=== PATIENT | male | born 1950 | race Caucasian/White ===

== ENCOUNTER → 2023-04-25 16:05 | Outpatient (REF) | payer OTHER, SELFPAY | LOC: MRI 3T 16:05 | PROVIDERS: ATTENDING PHYSICIAN Physical Medicine & Rehabilitation Pain Medicine; FAMILY PHYSICIAN Family Medicine | DX: M54.2 Cervicalgia (principal); G95.9 Disease of spinal cord, unspecified | CPT/HCPCS: 72141 ==

== ENCOUNTER 2023-07-18 11:21 | Outpatient (RCR) | payer OTHER, SELFPAY | END 2023-07-18 23:59 | disposition home or self-care (01) | LOC: RPT 11:21 | PROVIDERS: ATTENDING PHYSICIAN Psychiatry & Neurology Neurology; FAMILY PHYSICIAN Family Medicine | DX: G20.A1 Parkinson's disease without dyskinesia, without mention of fluctuations (principal); Z73.6 Limitation of activities due to disability | CPT/HCPCS: 97110; 97112; 97163; 97530 ==

== ENCOUNTER → 2023-07-23 18:32 | Outpatient (REF) | payer OTHER, SELFPAY | LOC: MRI 18:32 | PROVIDERS: ATTENDING PHYSICIAN Psychiatry & Neurology Neurology; FAMILY PHYSICIAN Family Medicine | DX: G20.A1 Parkinson's disease without dyskinesia, without mention of fluctuations (principal) | CPT/HCPCS: 70553; A9575 ==

== ENCOUNTER 2023-08-06 14:58 | Outpatient (RCR) | payer OTHER, SELFPAY | END 2023-08-06 23:59 | disposition home or self-care (01) | LOC: RPT 14:58 | PROVIDERS: ATTENDING PHYSICIAN Psychiatry & Neurology Neurology; FAMILY PHYSICIAN Family Medicine | DX: G20.A1 Parkinson's disease without dyskinesia, without mention of fluctuations (principal); Z73.6 Limitation of activities due to disability; R26.2 Difficulty in walking, not elsewhere classified | CPT/HCPCS: 97110; 97112; 97140; 97530 ==

== ENCOUNTER → 2023-08-24 12:02 | Outpatient (REF) | payer OTHER, SELFPAY | LOC: MRI 3T 12:02 | PROVIDERS: ATTENDING PHYSICIAN Psychiatry & Neurology Neurology; FAMILY PHYSICIAN Internal Medicine Cardiovascular Disease | DX: I63.9 Cerebral infarction, unspecified (principal) | CPT/HCPCS: 70544; 70549; A9585 ==

== ENCOUNTER 2023-09-19 14:36 | Outpatient (RCR) | payer OTHER, SELFPAY | END 2023-09-19 23:59 | disposition home or self-care (01) | LOC: RST 14:36 | PROVIDERS: ATTENDING PHYSICIAN Psychiatry & Neurology Neurology; FAMILY PHYSICIAN Family Medicine | DX: R49.8 Other voice and resonance disorders; G20.A1 Parkinson's disease without dyskinesia, without mention of fluctuations; Z73.6 Limitation of activities due to disability; R47.1 Dysarthria and anarthria; R26.2 Difficulty in walking, not elsewhere classified | CPT/HCPCS: 92507; 92522; 97110; 97112; 97116; 97530 ==

== ENCOUNTER → 2023-10-01 09:41 | Outpatient (REF) | payer OTHER, SELFPAY | LOC: RAD 09:41 | PROVIDERS: ATTENDING PHYSICIAN Surgery Vascular Surgery; FAMILY PHYSICIAN Family Medicine | DX: I77.3 Arterial fibromuscular dysplasia (principal) | CPT/HCPCS: 93975 ==

== ENCOUNTER → 2023-10-03 09:59 | Outpatient (REF) | payer OTHER, SELFPAY | LOC: RST 09:59 | PROVIDERS: ATTENDING PHYSICIAN Psychiatry & Neurology Neurology; FAMILY PHYSICIAN Family Medicine | DX: G20.A1 Parkinson's disease without dyskinesia, without mention of fluctuations (principal) | CPT/HCPCS: 74230; 92611 ==

== ENCOUNTER 2023-10-17 14:40 | Outpatient (RCR) | payer OTHER, SELFPAY | END 2023-10-17 23:59 | disposition home or self-care (01) | LOC: RPT 14:40 | PROVIDERS: ATTENDING PHYSICIAN Psychiatry & Neurology Neurology; FAMILY PHYSICIAN Family Medicine | DX: G20.A1 Parkinson's disease without dyskinesia, without mention of fluctuations (principal); Z73.6 Limitation of activities due to disability; R26.2 Difficulty in walking, not elsewhere classified | CPT/HCPCS: 92507 ==

== ENCOUNTER 2023-11-14 07:33 | Outpatient (RCR) | payer OTHER, SELFPAY | END 2023-11-14 23:59 | disposition home or self-care (01) | LOC: RPT 07:33 | PROVIDERS: ATTENDING PHYSICIAN Psychiatry & Neurology Neurology; FAMILY PHYSICIAN Family Medicine | DX: G20.A1 Parkinson's disease without dyskinesia, without mention of fluctuations (principal); Z73.6 Limitation of activities due to disability; R26.2 Difficulty in walking, not elsewhere classified | CPT/HCPCS: 92507 ==

== ENCOUNTER 2023-12-18 13:57 | Outpatient (RCR) | payer OTHER, SELFPAY | END 2023-12-18 23:59 | disposition home or self-care (01) | LOC: RPT 13:57 | PROVIDERS: ATTENDING PHYSICIAN Psychiatry & Neurology Neurology; FAMILY PHYSICIAN Family Medicine | DX: G20.A1 Parkinson's disease without dyskinesia, without mention of fluctuations (principal); Z73.6 Limitation of activities due to disability; R26.2 Difficulty in walking, not elsewhere classified | CPT/HCPCS: 92507 ==

== ENCOUNTER 2024-03-06 06:22 | Day surgery (SDC) | payer OTHER, SELFPAY | END 2024-03-06 14:31 | disposition home or self-care (01) | LOC: GI 06:22 | PROVIDERS: ATTENDING PHYSICIAN Specialist | DX: Z12.11 Encounter for screening for malignant neoplasm of colon (principal); K57.30 Diverticulosis of large intestine without perforation or abscess without bleeding; Z86.0100 Personal history of colon polyps, unspecified; Z80.0 Family history of malignant neoplasm of digestive organs | CPT/HCPCS: 45380; 88305 ==

== ENCOUNTER 2024-06-05 02:34 | Emergency (ER) | payer OTHER, SELFPAY ==
[2024-06-05 02:40] VITALS: BP 125/71; BMI 28.4
[2024-06-05 03:00] VITALS: BP 127/71
[2024-06-05 03:38] LABS: % Basophils 0.2 % (0-2); % Eosinophils 0.1 % (0-6); % Immature Granulocytes 0.4 % (0-0.5); % Monocytes 7.4 % (1.7-9.3); % Neutrophils 84.9 % (42.2-75.2); Absolute Immature Granulocytes 0.1 10^3/uL (0-0.05); Absolute Monocytes 1.1 10^3/uL (0.1-0.6); Absolute Neutrophils 12.5 10^3/uL (1.4-6.5); Hematocrit 44.5 % (39.0-52.0); Hemoglobin 15.4 g/dL (13.0-18.0); Mean Corp Hgb Conc. 34.6 g/dL (33.0-37.0); Mean Corpuscular Hgb 31.7 pg (27.0-31.0); Mean Corpuscular Volume 91.6 fL (80.0-94.0); Nucleated Red Blood Cells % 0 % (-); Platelet Count 197 10^3/uL (130-400); Red Blood Cell Count 4.86 10^6/uL (4.70-6.10); Red Cell Dist. Width 12.7 % (11.5-14.5); White Blood Cell Count 14.8 10^3/uL (4.8-10.8)
[2024-06-05 03:38] LABS: Urine Albumin Negative (Neg - Trace); Urine Bilirubin Negative (Negative); Urine Character Clear (Clear); Urine Color Yellow; Urine Glucose Negative (Negative); Urine Ketone Negative (Negative); Urine Leukocyte 2+ (Negative); Urine Nitrite Negative (Negative); Urine Occult Blood 2+ (Negative); Urine Specific Gravity 1.005 (<1.030); Urine Urobilinogen Negative (Neg - 1+)
[2024-06-05 03:58] LABS: ALT (SGPT) 13 U/L (0-50); AST (SGOT) 21 U/L (17-59); Albumin 4.8 g/dl (3.5-5.0); Alkaline Phosphatase 102 U/L (38-126); Blood Urea Nitrogen 19 mg/dl (9-20); Calcium 9.4 mg/dl (8.4-10.2); Carbon Dioxide 28 mmol/L (22-30); Chloride 99 mmol/L (98-107); Estimated Creatinine Clearance 66 ml/min; Glucose 131 mg/dl (70-99); Potassium 3.9 mmol/L (3.5-5.1); Sodium 141 mmol/L (135-145); Total Bilirubin 0.8 mg/dl (0.2-1.3); Total Protein 7.8 g/dl (6.3-8.2); eGFR > 60.00
[2024-06-05 04:00] VITALS: BP 110/57
[2024-06-05 04:01] LABS: Urine Bacteria Moderate (Negative); Urine White Cell 30-40 /HPF (0-5)
[2024-06-05] MEDS: ROCEPHIN 1000 MG IV (05:38)
--- NOTE | 2024-06-05 05:47 | ED.GENMED ---
History of Present Illness
General
Chief Complaint: Fall
Source: patient and spouse
Exam Limitations: none
Time Seen by Provider: 06/05/24 05:18
Nursing documentation reviewed up to this point in time: agreed with
History of Present Illness
History of Present Illness:
73-year-old male past medical history of Parkinson's self cathing presenting to the emergency department today after he tried to get up out of bed he thought his arms were somewhat weak and slowly lowered himself to the ground without any traumatic
fall. He claims that he did take Xanax prior to bed which he normally does not take which was likely why he felt weak. He now feels better at this point. Also noted small amount of blood in his urine a few days ago and thinks he may have a fever
earlier today denies chest pain shortness of breath numbness weakness
Past History
Past History
ED Past Medical History: GERD and Other (Prostatic hypertrophy)
Social History
Tobacco: Non-smoker
Drug: None
Personal:
Review of Systems
Review of Systems
Allergies reviewed?: Yes
All Other Systems: ROS reviewed and negative except as documented in HPI and ROS
Phy Exam
Physical Exam
Physical Exam:
GENERAL: Alert , in no apparent distress
EYE: pupils equal and reactive
NECK: Supple, no significant adenopathy.
ENT: o/p clr, mmm.
CARDIAC: Regular rate and rhythm .
LUNGS: Clear breath sounds bilaterally, no acute respiratory distress, no wheezes/rales/rhonchi
ABDOMEN: Soft, without focal tenderness, no r/g, no cvat
NEUROLOGICAL: Alert and oriented, no focal neuro deficits
SKIN: Warm and dry, skin intact.
MUSCULOSKELETAL: No edema, well perfused.
PSYCH: Normal and appropriate interaction.
Course
Orders/Labs/Results
Orders:
Orders
06/05/24 02:39
Electrocardiogram (*1) Urgent
Reason for Study: Syncope
EKG- Treatment ONCE
06/05/24 02:56
Complete Blood Count/With Diff Urgent
Comprehensive Metabolic Panel Urgent
Lactic Acid Urgent
Blood Culture Urgent
JUANITA Source: Blood/Venous
Specimen Description:
06/05/24 03:23
Straight cath- Treatment ONCE
06/05/24 03:28
Urinalysis Reflex To Culture Urgent
Date Specimen was Collected: 06/05/24
Time Specimen was Collected: 02:39
Urine Microscopic Reflex Cult Urgent
Blood Culture Urgent
JUANITA Source: Blood/Venous
Specimen Description:
Urine Culture Urgent
JUANITA Source: U
Specimen Description:
Date Specimen was Collected: 06/05/24
Time Specimen was Collected: 02:39
06/05/24 05:32
CefTRIAXone [Rocephin] 1,000 mg IV NOW STA
Abnormal Lab Results
06/05/24 06/05/24
02:56 03:28
WBC 14.8 H 10^3/uL
(4.8-10.8)
MCH 31.7 H pg
(27.0-31.0)
Abs Immat Gran (auto) 0.1 H 10^3/uL
(0-0.05)
Absolute Neuts (auto) 12.5 H 10^3/uL
(1.4-6.5)
Absolute Lymphs (auto) 1.0 L 10^3/uL
(1.2-3.4)
Absolute Monos (auto) 1.1 H 10^3/uL
(0.1-0.6)
Neutrophils % 84.9 H %
(42.2-75.2)
Lymphocytes % 7.0 L %
(20.5-51.1)
Glucose 131 H mg/dl
(70-99)
Ur Occult Blood Reflex 2+ A
(Negative)
Leukocyte Esterase Rfl 2+ A
(Negative)
Urine RBC 3-6 A /HPF
(0-2)
Urine WBC (Reflex) 30-40 A /HPF
(0-5)
Urine Bacteria (Reflex) Moderate A
(Negative)
06/05/24 02:56
06/05/24 02:56
Vital Signs
Initial and Last Documented VS:
Initial Vital Signs
Temp Pulse Resp BP Pulse Ox
98.8 F 106 16 125/71 94
06/05/24 02:40 06/05/24 02:40 06/05/24 02:40 06/05/24 02:40 06/05/24 02:40
Last Documented Vital Signs
Temp Pulse Resp BP Pulse Ox
98.8 F 95 20 110/57 91
06/05/24 02:40 06/05/24 04:00 06/05/24 04:00 06/05/24 04:00 06/05/24 03:00
MDM/Problems Addressed
MDM/Problems Addressed:
73-year-old male presenting to the emergency department today after a ground-level fall that was nontraumatic. Difficulty getting up and was brought in by EMS. On arrival here mildly tachycardic otherwise vital signs are normal. Vital signs
improved without specific treatment. White count 14.8. He was on the ground for very short period of time no likelihood of rhabdo. Urinalysis potentially consistent with UTI. Weakness was secondary to the Xanax use from UTI. Patient claims that
he believes it was likely from the Xanax. To go home at this point. Patient was able to stand up and walk without assistance in the room which the claims was much better than he was at the house earlier. Was explained to him that UTI and
will require treatment he was offered to stay in the hospital for monitoring he elected to go home. Otherwise patient given initial IV dose of antibiotics here and given strict return precautions.
*Critical Care Note
Total Time (30-74mins, 75-104mins- exclusive of procedures): Not Applicable
ED Attending Note
-
Portions of this chart may have been created with voice recognition software.� Occasional wrong word or��sound alike� substitutions may have occurred due to the inherent limitations of voice recognition software.
Discharge Plan
Departure
Patient Disposition: Home (Routine Discharge)
Date of Disposition: 06/05/24
Time of Disposition: 05:49
Patient with high blood pressure during this ER visit?: No
Condition: Good
Covid-19: Not Applicable
Discharge Problem:
Acute UTI
Instructions: Urinary tract infections in adults
Prescriptions:
New
cefpodoxime 200 mg tablet
200 mg PO BID 7 Days Qty: 14 0RF
No Action
alprazolam 0.5 MG tablet
0.5 mg PO DAILYPRN PRN (Reason: anxiety)
Rx Instructions:
01/18/2023, patient filled this medication on 08/29/2022 for 90 tablets according to PDMP.
omeprazole 20 MG capsule,delayed release(DR/EC)
20 mg PO DAILY PRN (Reason: gerd)
Patient Comments:
01/18/2023, patient states that they take this medication 'whenever I remember to'.
tamsulosin [Flomax] 0.4 MG capsule
0.4 mg PO .SEE BELOW
Patient Comments:
01/18/2023, patient states that they take this medication 'every day or every other day'.
ascorbic acid (vitamin C) [Vitamin C] 500 MG tablet
500 mg PO DAILY
Patient Comments:
01/18/2023, patient states that they take this medication 'whenever I remember to'.
ibuprofen 200 MG tablet
400 mg PO Q4HPRN PRN (Reason: mild pain)
finasteride 5 MG tablet
5 mg PO QPM
Patient Comments:
01/18/2023, patient states that 'sometimes I forget to take' this medication.
Metamucil Fiber Singles 1 PACKET powder in packet
15 ml PO DAILY PRN (Reason: constipation)
Patient Comments:
01/18/2023, patient states that they take this medication 'every second or third day' and they are unsure of when they had it last.
polyethylene glycol 3350 [Miralax] 17 gram Powder In Packet
17 g PO Q48H
cyanocobalamin (vitamin B-12) 1,000 mcg Tablet
1,000 mcg PO DAILY
acetaminophen [Tylenol Extra Strength] 500 mg Tablet
500 mg PO Q6H PRN (Reason: mild pain)
escitalopram oxalate 20 mg Tablet
20 mg PO HSPRN PRN (Reason: anxiety)
cholecalciferol (vitamin D3) 25 mcg (1,000 unit) Tablet
25 mcg PO DAILY
diltiazem HCl 180 mg Capsule,Extended Release 24hr
180 mg PO BID Qty: 60 0RF
Eliquis 5 mg Tablet
5 mg PO BID Qty: 60 0RF
guaifenesin 600 mg Tablet Extended Release 12hr
600 mg PO Q12 Qty: 0 0RF
amoxicillin-pot clavulanate 875-125 mg tablet
1 tab PO BID Qty: 10 0RF
Referrals:
UNKNOWN - PT DOES,NOT KNOW [Family Provider] -
Activity Restrictions/Additional Instructions:
You came to the emergency department today with concerns of a fall. You are found to have a likely UTI. Please take the prescribed antibiotics and follow-up closely with your urologist. Return for any worsening, new or concerning symptoms.
Interventions
Interventions:
*Risk Screen - Suicide Last Done: 06/05/24 02:40
*General Assessment Last Done: 06/05/24 02:40
*Neglect/Abuse Screening Last Done: 06/05/24 02:40
*ED COVID-19 Vaccine History Last Done: 06/05/24 02:40
ED-Musculoskeletal Assessment Last Done: 06/05/24 03:00
ED- Neurological Assessment Last Done: 06/05/24 03:00
ED-Skin Assessment Last Done: 06/05/24 03:00
Discharge Date and Time
Print Language: UPPER SORBIAN
== END 2024-06-05 06:29 | disposition home or self-care (01) ==
LOC: EMR 02:34
PROVIDERS: EMERGENCY PHYSICIAN Emergency Medicine
DX: N39.0 Urinary tract infection, site not specified (principal); R00.0 Tachycardia, unspecified; G20.A1 Parkinson's disease without dyskinesia, without mention of fluctuations; N40.0 Benign prostatic hyperplasia without lower urinary tract symptoms
CPT/HCPCS: 96374; 99284; 80053; 81003; 81015; 83605; 85025; 87040; 87086; 93005

== ENCOUNTER → 2025-01-20 12:23 | Outpatient (REF) | payer OTHER, SELFPAY | LOC: RAD 12:23 | PROVIDERS: ATTENDING PHYSICIAN Specialist; FAMILY PHYSICIAN Family Medicine | DX: R19.4 Change in bowel habit (principal) | CPT/HCPCS: 74177; Q9967 ==

== ENCOUNTER 2025-01-25 16:21 | Emergency (ER) | payer OTHER, SELFPAY ==
[2025-01-25] VITALS (7 sets, daily range): BP systolic 123–155; BP diastolic 77–89; BMI 28.3
--- NOTE | 2025-01-25 16:47 | ED.GENMED ---
History of Present Illness
General
Chief Complaint: Abdominal Pain
Source: patient
Exam Limitations: none
Time Seen by Provider: 01/25/25 16:28
Nursing documentation reviewed up to this point in time: agreed with
History of Present Illness
History of Present Illness:
Patient to emergency department with complaint of lower abdominal pain. Symptoms started today. Reports pain to left lower quadrant. No prior history of same. He denies fever or chills. He reports nausea but no vomiting or diarrhea. Last bowel
movement was today, no improvement in his symptoms. Reports a history of diverticulosis but no prior diverticulitis. Brought to the emergency department by spouse for evaluation.
Past History
Past History
ED Past Medical History: GERD and Other (Prostatic hypertrophy, Parkinson's disease)
Social History
Tobacco: Non-smoker
Drug: None
Personal:
Review of Systems
Review of Systems
Allergies reviewed?: Yes
All Other Systems: ROS reviewed and negative except as documented in HPI and ROS
Constitutional: Reports no symptoms
EENT: Reports no symptoms
Respiratory: Reports no symptoms
Cardiac: Reports no symptoms
ABD/GI: Reports abdominal pain (Left lower quadrant abdominal pain)
: Reports no symptoms
Musculoskeletal: Reports no symptoms
Skin: Reports no symptoms
Neurological: Reports no symptoms
Psychiatric: Reports no symptoms
Phy Exam
General Physical Exam
General Presentation: well appearing and mild distress
General age: appears stated age
General Skin: warm and dry
General Habitus: normal
Cardiovascular Exam
Cardiovascular Exam: regular rate/rhythm and no edema
Gastrointestinal Exam
Gastrointestinal Exam: normal bowel sounds, soft, no organomegaly, no pulsatile mass and non distended
Palpation: left upper quadrant: No tenderness, left lower quadrant: Moderate tenderness, right upper quadrant: No tenderness and right lower quadrant: No tenderness
Musculoskeletal Exam
Musculoskeletal Exam: full ROM and neuro vasc intact
Skin Exam
Skin Exam: normal color, warm/dry and no rash
Psychiatric Exam
Psychiatric Exam: normal mood/affect
Course
Orders/Labs/Results
Orders:
Orders
01/25/25 16:41
Complete Blood Count/With Diff Urgent
Comprehensive Metabolic Panel Urgent
Lipase Urgent
01/25/25 16:43
0.9% Sodium Chloride 1000 ml [Nss] 1,000 ml IV BOLUS
HYDROmorphone [Dilaudid] 0.5 mg IV NOW STA
01/25/25 16:44
Prochlorperazine [Compazine] 10 mg IV NOW STA
01/25/25 17:36
CT Abd/pelvis W Iv Cont Urgent
Comment:
Reason For Exam: left lower abd. pain
HYDROmorphone [Dilaudid] 0.5 mg .ROUTE .STK-MED ONE
01/25/25 17:37
HYDROmorphone [Dilaudid] 0.5 mg IV NOW STA
01/25/25 18:52
Urinalysis Reflex To Culture Urgent
Date Specimen was Collected: 01/25/25
Time Specimen was Collected: 18:39
Urine Microscopic Reflex Cult Urgent
01/25/25 21:13
Oxycodone/Acetaminophen [Percocet 5/325] 1 tablet PO NOW STA
Tamsulosin [Flomax] 0.4 mg PO NOW STA
Abnormal Lab Results
01/25/25 01/25/25
16:41 18:52
Absolute Monos (auto) 0.7 H 10^3/uL
(0.1-0.6)
BUN 24 H mg/dl
(9-20)
Urine Ketones 1+ A
(Negative)
Ur Occult Blood Reflex 2+ A
(Negative)
Urine RBC 3-6 A /HPF
(0-2)
Urine Bacteria (Reflex) Few A
(Negative)
01/25/25 16:41
01/25/25 16:41
Vital Signs
Initial and Last Documented VS:
Initial Vital Signs
Temp Pulse Resp BP Pulse Ox
97.8 F 70 17 123/79 99
01/25/25 16:23 01/25/25 16:23 01/25/25 16:23 01/25/25 16:23 01/25/25 16:23
Last Documented Vital Signs
Temp Pulse Resp BP Pulse Ox
97.8 F 81 14 143/80 94
01/25/25 16:23 01/25/25 21:15 01/25/25 21:00 01/25/25 21:00 01/25/25 21:00
*Radiology
Radiology exam reviewed: radiology read reviewed
*Pulse Oximetry
SaO2: 99
Oxygen Mode of Delivery: Room air
Patient hypoxic: no
*Critical Care Note
Total Time (30-74mins, 75-104mins- exclusive of procedures): Not Applicable
Update Note
Update Note:
Patient to the emergency department with complaint of left-sided lower abdominal pain. Symptoms started this afternoon. No prior history of same. On arrival to ED he is awake and alert vital signs are stable and he remains afebrile. He was given
IV fluids and narcotic pain medication in ED with good control of pain. Labs reviewed. WBC 8.3. BUN 24. UA with +2 occult blood 3-6 RBCs with few bacteria. Patient was sent to CT for imaging of abdomen and pelvis. 7 mm renal stone noted at the
left UVJ, mild hydroureteronephrosis. Dr. Viveros was consulted. Patient to be discharged home. He was started on Flomax 0.4 mg which she will continue daily. He was given a prescription for Percocet 5/325 to be taken every 4 hours as needed
for severe pain. He will continue to strain his urine. He will contact urology in the a.m. to schedule follow-up appointment. Patient and spouse were given instructions on signs and symptoms to return to the emergency department and they are
agreeable to this plan.
ED Attending Note
-
Portions of this chart may have been created with voice recognition software.� Occasional wrong word or��sound alike� substitutions may have occurred due to the inherent limitations of voice recognition software.
Discharge Plan
Departure
Patient Disposition: Home (Routine Discharge)
Date of Disposition: 01/25/25
Time of Disposition: 21:14
Patient with high blood pressure during this ER visit?: No
Condition: Good
Covid-19: Not Applicable
Discharge Problem:
Kidney stone
Instructions: Kidney Stones (DC), How to Strain Your Urine
Prescriptions:
New
tamsulosin 0.4 mg capsule
0.4 mg PO DAILY Qty: 20 0RF
oxycodone-acetaminophen [Endocet] 5-325 mg tablet
1 tab PO Q4H PRN (Reason: Pain) Qty: 15 0RF
No Action
alprazolam 0.5 MG tablet
0.5 mg PO DAILYPRN PRN (Reason: anxiety)
Rx Instructions:
01/18/2023, patient filled this medication on 08/29/2022 for 90 tablets according to PDMP.
omeprazole 20 MG capsule,delayed release(DR/EC)
20 mg PO DAILY PRN (Reason: gerd)
Patient Comments:
01/18/2023, patient states that they take this medication 'whenever I remember to'.
tamsulosin [Flomax] 0.4 MG capsule
0.4 mg PO .SEE BELOW
Patient Comments:
01/18/2023, patient states that they take this medication 'every day or every other day'.
ascorbic acid (vitamin C) [Vitamin C] 500 MG tablet
500 mg PO DAILY
Patient Comments:
01/18/2023, patient states that they take this medication 'whenever I remember to'.
ibuprofen 200 MG tablet
400 mg PO Q4HPRN PRN (Reason: mild pain)
finasteride 5 MG tablet
5 mg PO QPM
Patient Comments:
01/18/2023, patient states that 'sometimes I forget to take' this medication.
Metamucil Fiber (aspartame) 1 PACKET powder in packet
15 ml PO DAILY PRN (Reason: constipation)
Patient Comments:
01/18/2023, patient states that they take this medication 'every second or third day' and they are unsure of when they had it last.
polyethylene glycol 3350 [Miralax] 17 gram Powder In Packet
17 g PO Q48H
cyanocobalamin (vitamin B-12) 1,000 mcg Tablet
1,000 mcg PO DAILY
acetaminophen [Tylenol Extra Strength] 500 mg Tablet
500 mg PO Q6H PRN (Reason: mild pain)
escitalopram oxalate 20 mg Tablet
20 mg PO HSPRN PRN (Reason: anxiety)
cholecalciferol (vitamin D3) 25 mcg (1,000 unit) Tablet
25 mcg PO DAILY
diltiazem HCl 180 mg Capsule,Extended Release 24hr
180 mg PO BID Qty: 60 0RF
Eliquis 5 mg Tablet
5 mg PO BID Qty: 60 0RF
guaifenesin 600 mg Tablet Extended Release 12hr
600 mg PO Q12 Qty: 0 0RF
amoxicillin-pot clavulanate 875-125 mg tablet
1 tab PO BID Qty: 10 0RF
cefpodoxime 200 mg tablet
200 mg PO BID 7 Days Qty: 14 0RF
Referrals:
Luis Tolentino MD [Active, Urology] - Call in 1-3 days for appt
Celestine Mayfield MD [Family Provider, Family Practice]
Activity Restrictions/Additional Instructions:
Return to the emergency department for any changes in/worsening of your symptoms.
Interventions
Interventions:
*Risk Screen - Suicide Last Done: 01/25/25 16:26
*General Assessment Last Done: 01/25/25 16:26
*Neglect/Abuse Screening Last Done: 01/25/25 16:26
*ED COVID-19 Vaccine History Last Done: 01/25/25 16:26
*ED Influenza Vaccine History Last Done: 01/25/25 16:[address]
[facility] Fall Risk Assessment Tool Last Done: 01/25/25 16:57
*Nursing Disposition Last Done: 01/25/25 21:50
IJ-Bivjfk-Wlzfxhport Assessment Last Done: 01/25/25 16:39
Discharge Date and Time
Discharge Date/Time: 01/25/25 21:51
Print Language: GEORGIAN
[2025-01-25] MEDS: NSS 1000 IV (16:48)
[2025-01-25] MEDS: COMPAZINE 10 MG IV (16:49)
[2025-01-25] MEDS: DILAUDID 0.5 MG IV ×2 (16:50→17:37)
[2025-01-25 16:55] LABS: Hematocrit 41.9 % (39.0-52.0); Hemoglobin 14.5 g/dL (13.0-18.0); Mean Corp Hgb Conc. 34.6 g/dL (33.0-37.0); Mean Corpuscular Volume 88.6 fL (80.0-94.0); Nucleated Red Blood Cells % 0 % (-); Platelet Count 218 10^3/uL (130-400); Red Cell Dist. Width 12.6 % (11.5-14.5)
[2025-01-25 17:19] LABS: ALT (SGPT) < 10 U/L (0-50); AST (SGOT) 20 U/L (17-59); Albumin 4.7 g/dl (3.5-5.0); Alkaline Phosphatase 75 U/L (38-126); Blood Urea Nitrogen 24 mg/dl (9-20); Calcium 9.0 mg/dl (8.4-10.2); Carbon Dioxide 28 mmol/L (22-30); Chloride 102 mmol/L (98-107); Estimated Creatinine Clearance 65 ml/min; Glucose 96 mg/dl (70-99); Lipase 66 U/L (23-300); Potassium 4.4 mmol/L (3.5-5.1); Sodium 138 mmol/L (135-145); Total Protein 7.5 g/dl (6.3-8.2); eGFR > 60.00
[2025-01-25 19:06] LABS: Urine Character Clear (Clear)
[2025-01-25 20:09] LABS: Urine Squamous Cell 0-2 /LPF (Few)
[2025-01-25 20:10] LABS: Urine White Cell 0-2 /HPF (0-5)
[2025-01-25] MEDS: FLOMAX 0.4 MG PO (21:16)
[2025-01-25] MEDS: PERCOCET 5/325 1 TABLET PO (21:16)
== END 2025-01-25 21:51 | disposition home or self-care (01) ==
LOC: EMR 16:21
PROVIDERS: Nurse Practitioner; EMERGENCY PHYSICIAN Emergency Medicine; FAMILY PHYSICIAN Family Medicine
DX: N13.2 Hydronephrosis with renal and ureteral calculous obstruction (principal); K21.9 Gastro-esophageal reflux disease without esophagitis; G20.A1 Parkinson's disease without dyskinesia, without mention of fluctuations; N40.0 Benign prostatic hyperplasia without lower urinary tract symptoms
CPT/HCPCS: 99284; 96374; 96375; 96376; 96361; 74177; 80053; 81003; 81015; 83690; 85025; Q9967

== ENCOUNTER → 2025-02-07 10:31 | Outpatient (REF) | payer OTHER, SELFPAY | LOC: RAD 10:31 | PROVIDERS: ATTENDING PHYSICIAN Specialist; FAMILY PHYSICIAN Family Medicine | DX: N20.1 Calculus of ureter (principal) | CPT/HCPCS: 74018 ==

== ENCOUNTER 2025-02-16 06:49 | Outpatient (RCR) | payer OTHER, SELFPAY | END 2025-02-16 23:59 | disposition home or self-care (01) | LOC: RST 06:49 | PROVIDERS: ATTENDING PHYSICIAN Specialist | DX: R13.12 Dysphagia, oropharyngeal phase (principal); G20.A1 Parkinson's disease without dyskinesia, without mention of fluctuations | CPT/HCPCS: 92526; 92610 ==